=== PATIENT | female | born 1980 | race Caucasian/White ===

== ENCOUNTER → 2021-05-06 | Outpatient (CLI) | payer OTHER ==
--- NOTE | 2021-05-06 14:59 | KCIC ---
EXAMINATION: MRI cervical spine without IV contrast INDICATION: Paresthesias Bilateral Hands/Arms, Degenerative Changes On X-Ray COMPARISON: None TECHNIQUE: Multiplanar, multi-sequence MRI of the cervical spine was performed. FINDINGS: POSTERIOR FOSSA: Included posterior fossa is unremarkable. CERVICAL SPINAL CORD: The cervical cord is normal in morphology and signal intensity. ALIGNMENT: The alignment at the craniocervical junction is normal. The lateral masses of C1 are appro priately aligned with C2. There is no listhesis or scoliosis of the subaxial cervical spine. VERTEBRAE: Modic type I endplate degeneration at C5-6 with sub-endplate bone marrow edema. Multilevel degenerative changes with disc space narrowing and osteophytes, specific level as follow: C2-C3: No canal stenosis or neuroforaminal narrowing. C3-C4: Mild diffuse disc bulge abutting anterior thecal sac. No significant canal stenosis or neurofo raminal narrowing. C4-C5: Large left paracentral/foraminal disc extrusion indenting left anterior spinal cord and causin g mild to moderate canal stenosis with moderate left neuroforaminal narrowing. C5-6: Large left paracentral disc extrusion with approximately 8mm inferior migration, indenting left anterior spinal cord and causing moderate canal stenosis. No significant neuroforaminal narrowing. C6-7: Diffuse disc bulge, indenting thecal sac and causing mild canal stenosis. No significant neurof oraminal narrowing. C7-T1: No canal stenosis or neuroforaminal narrowing. INCLUDED UPPER THORACIC SPINE: The intervertebral discs are normal in height and signal intensity. Th ere is no central canal or neural foraminal narrowing. The facet joints are normal. EXTRA-SPINAL STRUCTURES: There is a 7.9 x 5.6 cm heterogeneous T2 hyperintense left thyroid nodule. IMPRESSION: 1. Multilevel degenerative changes of the cervical spine with large left paracentral disc extrusions at C4-5 and C5-6 indenting the left anterior spinal cord and resulting in [id number] canal scott nosis. Moderate left neuroforaminal narrowing at C4-5. 2. Left 7.9 cm thyroid nodule. Recommend further evaluation with thyroid ultrasound. Electronically signed by: Candy Wilkes MD (05/06/2021 2:57 PM) [id number]
== END ==
LOC: KCIC MRI 12:54
PROVIDERS: ATTEND Family Medicine
DX: M50.21 Other cervical disc displacement, high cervical region (principal); M48.02 Spinal stenosis, cervical region; E04.1 Nontoxic single thyroid nodule; R20.2 Paresthesia of skin
CPT/HCPCS: 72141